=== PATIENT | male | born 1990 | race African-American/Black ===

== ENCOUNTER 2025-08-01 13:13 | Emergency (ER) | payer SELFPAY ==
[2025-08-01 13:14] VITALS: BP 133/70; PULSE 55; RESP 16; TEMP 36.6; O2SAT 100; BMI 33.9
[2025-08-01 14:14] VITALS: BP 139/78; PULSE 62; O2SAT 100
--- NOTE | 2025-08-01 14:18 | EKG12_ITS ---
Test Reason : Blood Pressure : */* mmHG Vent. Rate : 53 BPM Atrial Rate : 53 BPM P-R Int : 188 ms QRS Dur : 94 ms QT Int : 404 ms P-R-T Axes : -3 10 15 degrees QTcB Int : 379 ms Sinus bradycardia Otherwise normal ECG Confirmed by Ej Ramirez ([id number]), offline editor ABHIJIT DUNBAR ([id number]) on 08/02/2025 10:21:01 AM Referred By: Confirmed By: Ej Ramirez
[2025-08-01] MEDS: 0.9% Normal Saline (1000mL) 1,000 ML 999 ML IV (14:26)
--- NOTE | 2025-08-01 14:27 | ED.VIS.CHEST ---
HPI History of Present Illness Chief Complaint: Chest Pain Narrative Narrative: Patient is a 35-year-old male with no known significant past medical history who presents to the emergency department the chief complaint of chest pain. He states this has been going on for approximately 2 weeks now and he states that this will happen randomly. Patient states that nothing in particular says he has episodes off. He states that all of a sudden he will get a stabbing sensation and it will take his breath away. Patient denies any history of blood clots denies any recent travel history. Patient states that him and his significant other were playing Dr. Hart and they did not know if this was his gallbladder. They state that eating does not make this worse. He states that he is just now unsure of the exact cause of the pain therefore he came here for further evaluation management. He states that high blood pressure does run in his family. PFSH PFS Medical History no medical history Home Medications ?Medication ?Instructions ?Recorded ?Last Taken ?Type NK 08/01/25 Unknown History Allergy/AdvReac Type Severity Reaction Status Date / Time No Known Allergies Allergy Verified 08/01/25 13:17 Family History no significant family his Surgical History no surgical history Social History Smoking Status: Current every day smoker tobacco type: cigarettes and e-cigarettes ROS ROS ED ROS Narrative Constitutional: Denies any fevers, chills, headaches Eyes: Denies double vision blurry vision Cardiovascular: Complains of chest pain as noted above denies palpitations Respiratory: Denies coughing wheezing shortness of breath Abdomen: Denies abdominal pain nausea vomit diarrhea : Denies urinary symptoms Neurological: Denies any numbness, weakness, tingling Musculoskeletal: Denies back pain Skin: Denies any rashes or lesions EXAM Physical Exam Narrative Exam Narrative: General: Patient was lying in bed rest comfortably did not appear to be in acute distress Head: Atraumatic, normocephalic Eyes: PERRL bilateral, EOMI bilateral, no conjunctival injection noted Neck: Soft, supple, trachea midline Cardiovascular: Regular rate and rhythm no murmurs gallops rubs noted Respiratory: Clear to auscultation bilaterally Abdomen: Soft, nondistended, nontender to palpation n negative Chavez sign Extremities: +5/5 strength noted in the bilateral lower extremities, radial pulses +2/4 in the bilateral extremities, no pedal edema exam Neurological: Patient commands knew that he was at [facility] year is 2024 Skin: Warm, dry, tact no rashes or lesions noted Const Vital Signs: 08/01/25 13:14 08/01/25 13:33 08/01/25 14:14 Temperature 98 F Temperature Source Oral Pulse Rate 55 L 62 Respiratory Rate 16 Respiratory Effort Normal Non-Labored Blood Pressure 133/70 H 139/78 H Blood Pressure Mean 91 98 Pulse Ox 100 100 Oxygen Delivery Method Room Air Room Air 08/01/25 14:20 08/01/25 15:00 08/01/25 16:00 Temperature Temperature Source Pulse Rate 49 L 64 Respiratory Rate 16 Respiratory Effort Blood Pressure 143/78 H 148/70 H Blood Pressure Mean 99 96 Pulse Ox 100 100 Oxygen Delivery Method Room Air Room Air Room Air MDM MDM MDM Narrative Medical decision making narrative: Patient is a 35-year-old male who presents to the emergency department chief complaint chest pain. On the differential diagnose includes but not limited to ACS, pneumonia, pericarditis, PE although have low suspicion for these at this point time. Once workup is obtained reviewed he will be reevaluated. Pass Christian Score (Revised) for Pulmonary Embolism from [email or web address] on 08/01/2025 All calculations should be rechecked by clinician prior to use RESULT SUMMARY: 0 points Low risk group: 7-9% incidence of PE from several studies. INPUTS: Age >65 ?> 0 = No Previous DVT or PE ?> 0 = No Surgery (under general anesthesia) or lower limb fracture in past month ?> 0 = No Active malignant condition ?> 0 = No Unilateral lower limb pain ?> 0 = No Hemoptysis ?> 0 = No Heart rate ?> 0 = < 75 Pain on lower limb palpation and unilateral edema ?> 0 = No Patient CBC reviewed showed no evidence of cytosis white blood count 5.9, he was 14.9, plate count was 9178. Sodium was 139, potassium 4, creatinine 0.93. Patient opponent is 9 with a delta troponin 12. Patient's EKG reviewed showed sinus bradycardia with rate of 53 bpm the RI interval normal at 188. Patient lipase normal at 29. Patient's chest x-ray was reviewed by myself by radiology showed no acute cardiopulmonary processes. Discussed results with the patient and significant other at bedside and he would like to go home at this point time. He is vies return with worsening symptoms or concerns. They are agreeable with this plan all course concerns answered he was discharged home in stable condition. Lab Data Labs: Laboratory Results - last 24 hr 08/01/25 08/01/25 13:25 15:17 WBC 5.9 RBC 4.78 Hgb 14.9 Hct 43.3 MCV 90.6 MCH 31.2 MCHC 34.4 RDW Std Deviation 43.8 RDW Coeff of Alla 13.1 Plt Count 178 MPV 11.4 Immature Gran % (Auto) 0.000 Neut % (Auto) 32.7 L Lymph % (Auto) 50.6 H Harney % (Auto) 9.4 Eos % (Auto) 6.6 H Baso % (Auto) 0.7 Absolute Neuts (auto) 1.9 L Absolute Lymphs (auto) 2.97 Nucleated RBC % 0 Sodium 139 Potassium 4.0 Chloride 103 Carbon Dioxide 26.5 Anion Gap 10 BUN 9 Creatinine 0.93 Estim Creat Clear Calc 142.85 Est GFR (MDRD) Non-Af 110 BUN/Creatinine Ratio 9.5 L Glucose 91 Calcium 9.2 Troponin T High Sens 9 Troponin T Hi Sens 2 Hr 12 Lipase 29 Radiography Diagnostic Testing: Clinical Impression(s) from Imaging Studies Chest X-Ray 08/01/25 14:35 IMPRESSION: Very mild thoracic spine degenerative changes are seen. No fracture or dislocation is evident. If clinical concern persists, short-term follow-up imaging may be obtained to rule out a currently occult fracture. The lateral view is limited by patient motion. Lungs are hypoinflated, but appear clear of acute disease. No pleural effusion or pneumothorax is seen. The cardiomediastinal silhouette is within the normal range. No evidence of acute cardiopulmonary disease. Reading Location: [place] [id number] Discharge Plan Triage Chief Complaint: Chest Pain ED Provider: Madan Pearl Dx/Rx/DC Orders Clinical Impression: Chest pain, Family history of essential hypertension Prescriptions: No Action NK Primary Care Provider: Care Physician,No Primary Referrals: Demetri Porter MD [Med Staff - Active Staff] - Care Physician,No Primary [Primary Care Provider] - Activity Restrictions/Additional Instructions: Your blood work did not show any acute findings today. Follow-up your doctor in outpatient setting keep a close eye in your blood work. Return with worsening symptoms or other concerns. Print Language: Italian Disposition Disposition: Home, Self Care
[2025-08-01 14:34] LABS: Hematocrit 43.3 % (40-54); Hemoglobin 14.9 g/dL (13.0-16.5); Immature Granulocytes Count 0.000 X10^3/uL (0.0-0.0); Mean Corp Hgb Conc 34.4 g/dL (32-36); Mean Corpuscular Volume 90.6 fL (80-94); Mean Platelet Vol. 11.4 fl (6.2-12.0); NRBC Flagged by Analyzer 0 % (0-5); Platelet Count 178 K/mm3 (150-450); RBC Distribution Width CV 13.1 % (11.6-14.6); RBC Distribution Width SD 43.8 fl (35.1-43.9); Red Blood Count 4.78 M/mm3 (4.6-6.2); White Blood Count 5.9 K/mm3 (4.4-11.0)
--- NOTE | 2025-08-01 14:35 | RAD_ITS ---
PROCEDURE: CHEST PA AND LATERAL 08/01/2025 REASON FOR EXAM: CHEST PAIN. Left-sided chest pain for 2 days. TECHNIQUE: Procedure Code: RADCXR Modality: DX Procedure: CHEST PA AND LATERAL COMPARISON: None. RAD/Chest PA and Lateral IMPRESSION: Very mild thoracic spine degenerative changes are seen. No fracture or dislocation is evident. If clinical concern persists, short-term follow-up imaging may be obtained to r ule out a currently occult fracture. The lateral view is limited by patient motion. Lungs are hypoinflated, but appear clear of acute disease. No pleural effusion or pneumothorax is seen. The cardiomediastinal silhouette is within the normal range. No evidence of acute cardiopulmonary disease. Reading Location: [place] [id number]
[2025-08-01 14:52] LABS: Anion Gap 10 (5-15); BUN 9 mg/dL (4-19); BUN/Creat Ratio 9.5 RATIO (10-20); Calcium,Total 9.2 mg/dL (7.6-11.0); Carbon Dioxide 26.5 mmol/L (21.0-32.0); Chloride 103 mmol/L (98-108); Estimated Creatinine Clearance 142.85 ml/min (50-250); Glucose 91 mg/dL (70-99); Lipase 29 U/L (13-75); Potassium 4.0 mmol/L (3.3-5.1); Troponin T High Sensitivity 9 ng/L (<=22)
[2025-08-01 15:00] VITALS: BP 143/78; PULSE 49; RESP 16; O2SAT 100
[2025-08-01 15:55] LABS: Troponin T High Sens 2 HR 12 ng/L (<=22)
[2025-08-01 16:00] VITALS: BP 148/70; PULSE 64; O2SAT 100
[2025-08-01 16:50] VITALS: BP 148/70; PULSE 64; RESP 16; TEMP 36.6; O2SAT 100
== END 2025-08-01 16:53 | disposition home or self-care (01) ==
PROVIDERS: Emergency Provider Emergency Medicine; Visit Provider Emergency Medicine
DX: R07.9 Chest pain, unspecified (principal); R00.1 Bradycardia, unspecified; F17.210 Nicotine dependence, cigarettes, uncomplicated; F17.290 Nicotine dependence, other tobacco product, uncomplicated; Z82.49 Family history of ischemic heart disease and other diseases of the circulatory system
CPT/HCPCS: 71046; 80048; 83690; 84484; 85025; 93005; 96360; 99283; A4216